=== PATIENT | female | born 1995 | race Caucasian/White ===

== ENCOUNTER 2017-02-18 21:27 | Emergency (ER) | payer OTHER ==
[2017-02-18 21:33] VITALS: BP 109/77; PULSE 84; TEMP 98.2; BMI 17.5
--- NOTE | 2017-02-18 22:17 | PDOC ---
History of Present Illness - General Chief Complaint: Bite Stated Complaint: BITE Time Seen by Provider: 02/18/17 21:56 - History of Present Illness Initial Comments: 02/18/17 22:12 CHIEF COMPLAINT: dog bite HISTORY OF PRESENT ILLNESS: 21 yo F with hx of asthma presents to fast track s/ p dog bite earlier today. Patient reports she was walking to her job when a dog that was being walked by his sash finisher jumped up and bit her on the left thigh. Patient reports that she was wearing pants and the dog bit over the cloth, she denies any puncture, open wound, or bleeding caused by the bite. She states that she "just wanted to get checked out since I have never been bit before." No recent travel or sick contacts. PAST MEDICAL HISTORY: Denies past medical history FAMILY HISTORY: Denies SOCIAL HISTORY: Denies tobacco, alcohol, illicit drug use. SURGICAL HISTORY: Denies ALLERGIES: No known drug allergies REVIEW OF SYSTEMS General/Constitutional: Denies fever or chills. Denies weakness, weight change. HEENT: Denies change in vision. Denies ear pain or discharge. Denies sore throat. Cardiovascular: Denies chest pain or shortness of breath. Respiratory: Denies cough, wheezing, or hemoptysis. Gastrointestinal: Denies nausea, vomiting, diarrhea or constipation. Denies rectal bleeding. Genitourinary: Denies dysuria, frequency, or change in urination. Musculoskeletal: Denies joint or muscle swelling or pain. Denies neck or back pain. Skin and breasts: Pain and bruising s/o dog bite. PHYSICAL EXAM General Appearance: Well-appearing, appropriately dressed. No apparent distress. HEENT: EOMI, PERRLA, normal ENT inspection, normal voice, TMs normal, pharynx normal. No conjunctival pallor. No photophobia, scleral icterus. Respiratory/Chest: Lungs CTAB. Cardiovascular: RRR. S1, S2. Lymphatic: No adenopathy, tenderness. Musculoskeletal/Extremities: See integumentary. Normal inspection. FROM of all extremities. Integumentary: Tenderness and ecchymosis to distal left thigh, no open wounds, puncture, lesions, bleeding. Appropriate color, dry, warm. No cyanosis, erythema, jaundice or rash. Neurologic: abap developer II-XII intact. Fully oriented, alert. Appropriate mood/affect. Motor strength 5/5. No appreciable EOM palsy, facial droop or sensory deficit. Past History - Past Medical History Allergies/Adverse Reactions: Allergies Allergy/AdvReac Type Severity Reaction Status Date / Time jessica Allergy Verified 02/18/17 21:29 Home Medications: Ambulatory Orders Albuterol Sulfate Inhaler - [Ventolin Hfa Inhaler -] 1 - 2 inh PO QID 02/18/17 Ibuprofen 800 mg PO TID PRN #30 tablet 02/18/17 Asthma: Yes - Psycho/Social/Smoking Cessation Hx Suicidal Ideation: No Smoking History: Never smoked Have you smoked in the past 12 months: No Number of Cigarettes Smoked Daily: 0 Hx Alcohol Use: No Drug/Substance Use Hx: No *Physical Exam - Vital Signs Last Vital Signs Temp Pulse Resp BP Pulse Ox 98.2 F 84 16 109/77 100 02/18/17 21:30 02/18/17 21:30 02/18/17 21:30 02/18/17 21:30 02/18/17 21:30 Medical Decision Making - Medical Decision Making 02/18/17 22:16 21 yo F with hx of asthma presents to fast track s/p dog bite earlier today. Patient reports last tetanus shot was 2007. Patient does not meet criteria for RPEP as skin is intact. Motrin 800 mg TID PRN pain. Advised patient to f/u with PMD within the next 3-5 days for further evaluation. Advised patient of signs and symptoms for return to ER; patient verbalized understanding and agrees to plan. *DC/Admit/Observation/Transfer Diagnosis at time of Disposition: Dog bite Qualifiers: Encounter type: initial encounter Qualified Code(s): W54.0XXA - Bitten by dog, initial encounter - Discharge Dispostion Disposition: HOME Condition at time of disposition: Stable Admit: No - Prescriptions Prescriptions: Ibuprofen 800 mg PO TID PRN #30 tablet PRN Reason: Pain - Patient Instructions Printed Discharge Instructions: DI for Animal Bites, DI for Dog Bite Additional Instructions: Please take medication as prescribed for pain. Follow up with your primary care doctor next week for reevaluation of the bite. If you develop any swelling , redness, warmth, or increased pain to the site of the bite, or you develop any fever, nausea, vomiting, diarrhea, or any new or worsening symptoms, please return to the ER.
== END 2017-02-18 22:34 | disposition home or self-care (01) ==
LOC: JERFT 21:27
DX: S70.372A Other superficial bite of left thigh, initial encounter (principal); W54.0XXA Bitten by dog, initial encounter; Y93.01 Activity, walking, marching and hiking; Y92.480 Sidewalk as the place of occurrence of the external cause; Y99.8 Other external cause status
CPT/HCPCS: 99281-25

== ENCOUNTER 2017-03-18 20:56 | Emergency (ER) | payer OTHER ==
[2017-03-18 21:26] VITALS: BMI 16.6
--- NOTE | 2017-03-18 22:50 | PDOC ---
History of Present Illness - General Chief Complaint: Nausea/Vomiting Stated Complaint: VAGINAL BLEED Time Seen by Provider: 03/18/17 21:17 - History of Present Illness Initial Comments: 03/18/17 22:47 CHIEF COMPLAINT: vag bldg, abd cramping HISTORY OF PRESENT ILLNESS: 21 yo F with hx of asthma and fibromyalgia presents to ED with abd cramping x 1.5 week and vag bldg since today. Patient reports she went to see her doctor who did a preg test but siad it was neg but she should get it rechecked becuase it was probly early preg. patient states usually period is heavy from beginning but today was diff, was watery blood. nausa all last week, vomiting 3 x yesterday and 4x today. No recent travel or sick contacts. PAST MEDICAL HISTORY: Denies past medical history FAMILY HISTORY: Denies SOCIAL HISTORY: Denies tobacco, alcohol, illicit drug use. SURGICAL HISTORY: Denies ALLERGIES: raspberry REVIEW OF SYSTEMS General/Constitutional: Denies fever or chills. Denies weakness, weight change. HEENT: Denies change in vision. Denies ear pain or discharge. Denies sore throat. Cardiovascular: Denies chest pain or shortness of breath. Respiratory: Denies cough, wheezing, or hemoptysis. Gastrointestinal: Denies nausea, vomiting, diarrhea or constipation. Denies rectal bleeding. Genitourinary: Denies dysuria, frequency, or change in urination. Musculoskeletal: Denies joint or muscle swelling or pain. Denies neck or back pain. Skin and breasts: Denies rash or easy bruising. Neurologic: Denies headache, vertigo, loss of consciousness, or loss of sensation. Psychiatric: Denies depression or anxiety. Endocrine: Denies increased thirst. Denies abnormal weight change. Hematologic/Lymphatic: Denies anemia, easy bleeding, or history of blood clots. Allergic/Immunologic: Denies hives or skin allergy. Denies latex allergy. PHYSICAL EXAM General Appearance: Well-appearing, appropriately dressed. No apparent distress , no intoxication. HEENT: EOMI, PERRLA, normal ENT inspection, normal voice, TMs normal, pharynx normal. No conjunctival pallor. No photophobia, scleral icterus. Neck: Supple. Trachea midline. No tenderness, rigidity, carotid bruit, stridor , lymphadenopathy, or thyromegaly. Respiratory/Chest: Lungs CTAB. No shortness of breath, chest tenderness, respiratory distress, accessory muscle use. No crackles, rales, rhonchi, stridor , wheezing, dullness Cardiovascular: RRR. S1, S2. No JVD, murmur, bradycardia, tachycardia. Vascular Pulses: Dorsalis-Pedis (R): 2+, Dorsalis-Pedis (L): 2+ Gastrointestinal/Abdominal: Normal bowel sounds. Abdomen soft, non-distended. No tenderness or rebound tenderness. No organomegaly, pulsatile mass, guarding , hernia, hepatomegaly, splenomegaly. Lymphatic: No adenopathy, tenderness. Musculoskeletal/Extremities: Normal inspection. FROM of all extremities, normal capillary refill. Pelvis Stable. No CVA tenderness. No tenderness to extremities, pedal edema, swelling, erythema or deformity. Integumentary: Appropriate color, dry, warm. No cyanosis, erythema, jaundice or rash Neurologic: cook restaurant II-XII intact. Fully oriented, alert. Appropriate mood/affect. Motor strength 5/5. No appreciable EOM palsy, facial droop or sensory deficit. 03/19/17 00:17 03/19/17 06:30 Past History - Past Medical History Allergies/Adverse Reactions: Allergies Allergy/AdvReac Type Severity Reaction Status Date / Time raspberry Allergy Verified 03/18/17 21:08 Home Medications: Ambulatory Orders Albuterol Sulfate Inhaler - [Ventolin Hfa Inhaler -] 1 - 2 inh PO QID 02/18/17 Ondansetron [Zofran *Odt*] 8 mg SL TID PRN #15 od.tablet 03/19/17 Asthma: Yes - Psycho/Social/Smoking Cessation Hx Suicidal Ideation: No Smoking History: Never smoked Have you smoked in the past 12 months: No Number of Cigarettes Smoked Daily: 0 Hx Alcohol Use: No Drug/Substance Use Hx: No *Physical Exam - Vital Signs Last Vital Signs Temp Pulse Resp BP Pulse Ox 98.4 F 77 18 96/65 99 03/18/17 21:09 03/18/17 21:09 03/18/17 21:09 03/18/17 21:09 03/18/17 21:09 ED Treatment Course - LABORATORY CBC & Chemistry Diagram: 03/18/17 23:00 03/18/17 23:00 Medical Decision Making - Medical Decision Making 03/19/17 00:17 21 yo F with hx of asthma and fibromyalgia presents to ED with abd cramping x 1.5 week and vag bldg since today. Patient tearful and complaining of severe diffuse abdominal cramping, unable to tolerate pelvic exam. -CBC, CMP, PT/INR, T&S, beta hcg -Pelvic u/s r/o torsion, cyst rupture *DC/Admit/Observation/Transfer Diagnosis at time of Disposition: Vaginal bleeding - Discharge Dispostion Admit: No - Prescriptions Prescriptions: Ondansetron [Zofran *Odt*] 8 mg SL TID PRN #15 od.tablet PRN Reason: Nausea And/Or Vomiting - Referrals Referrals: Luba Han MD [Primary Care Provider] - Brittney Currie MD [Staff Physician] - - Patient Instructions Printed Discharge Instructions: DI for Vaginal Bleeding Additional Instructions: Take medication as prescribed for your nausea/vomiting. Please follow up with your primary care doctor and OBGYN for further evaluation of your vaginal bleeding and abdominal discomfort . If you experience severe vaginal bleeding ( more than one soaked pad an hour), palpitations, dizziness or lightheadedness, or any new or worsening symptoms, please return to the ER. - Post Discharge Activity Work/School Note: Back to Work
[2017-03-18 23:10] LABS: BASOPHIL 0.6 % (0-2.0)
[2017-03-18 23:18] LABS: EOSINOPHIL 3.2 % (0-4.5); MCH 27.4 pg (25.7-33.7); MCHC 32.7 g/dl (32.0-36.0); MEAN CELL VOLUME 83.9 fl (80-96); MEAN PLT VOLUME 9.5 fl (7.5-11.1); PLATELET COUNT 320 K/MM3 (134-434); WHITE BLOOD COUNT 7.3 K/mm3 (4.0-10.0)
[2017-03-18 23:42] LABS: ALBUMIN 4.2 g/dl (3.4-5.0); ALK PHOS 68 U/L (45-117); ANION GAP 11 (8-16); BILIRUBIN,TOTAL 1.3 mg/dL (0.2-1.0); CALCIUM 9.6 mg/dL (8.5-10.1); CO2 21 mmol/L (21-32); CREATININE 0.8 mg/dL (0.55-1.02); GLUCOSE,RANDOM 90 mg/dL (74-106); SGOT/AST 19 U/L (15-37); SGPT/ALT 28 U/L (12-78); TOT PROT 7.4 g/dl (6.4-8.2)
[2017-03-19 00:50] LABS: URINE APPEARANCE CLEAR; URINE BILIRUBIN NEGATIVE (NEGATIVE); URINE COLOR YELLOW; URINE GLUCOSE (UA) NEGATIVE (NEGATIVE); URINE KETONE 1+ (NEGATIVE); URINE NITRITE NEGATIVE (NEGATIVE); URINE UROBILINOGEN NEGATIVE E.U./dl (0.2-1.0)
[2017-03-19 01:20] LABS: URINE BLOOD 3+ (NEGATIVE); URINE LEUK ESTERASE TRACE (NEGATIVE); URINE PROTEIN 1+ (NEGATIVE)
[2017-03-19 01:24] LABS: URINE MUCUS RARE; URINE RBC 767 /hpf (0-3); URINE WBC 27 /hpf (3-5)
[2017-03-19 05:04] VITALS: BP 102/62; PULSE 65; TEMP 98.3
== END 2017-03-19 01:59 | disposition home or self-care (01) ==
LOC: JER 20:56
DX: N93.8 Other specified abnormal uterine and vaginal bleeding (principal); J45.909 Unspecified asthma, uncomplicated; M79.7 Fibromyalgia
CPT/HCPCS: 36415; 76830-TC; 80053; 81003; 81015; 84702; 85025; 86850; 86900; 86901; 87086; 99282-25

== ENCOUNTER 2017-06-09 13:45 | Emergency (ER) | payer OTHER ==
[2017-06-09 13:48] VITALS: BP 107/72; PULSE 106; TEMP 98.7; BMI 18.0
[2017-06-09] MEDS ORDERED: ONDANSETRON *ODT* 4 MG TABLET SL ONE (16:03)
[2017-06-09] MEDS ORDERED: ONDANSETRON *ODT* 4 MG TABLET ONE (16:09)
[2017-06-09 16:43] LABS: URINE APPEARANCE CLEAR; URINE BILIRUBIN NEGATIVE (NEGATIVE); URINE BLOOD 3+ (NEGATIVE); URINE COLOR YELLOW; URINE GLUCOSE (UA) NEGATIVE (NEGATIVE); URINE KETONE 1+ (NEGATIVE); URINE NITRITE NEGATIVE (NEGATIVE); URINE UROBILINOGEN NEGATIVE mg/dL (0.2-1.0)
[2017-06-09 17:05] LABS: URINE PROTEIN 1+ (NEGATIVE)
[2017-06-09 17:20] LABS: URINE BACTERIA RARE /hpf (NONE SEEN); URINE MUCUS FEW; URINE RBC 4 /hpf (0-3); URINE WBC 2 /hpf (3-5)
--- NOTE | 2017-06-09 17:50 | PDOC ---
History of Present Illness - General Chief Complaint: Pain Stated Complaint: NAUSEA/VOMITING Time Seen by Provider: 06/09/17 15:51 History Source: Patient Exam Limitations: No Limitations - History of Present Illness Travel History: No Initial Comments: 06/09/17 17:51 21-year-old female presents to the emergency room with complaints of nausea and vomiting with upper abdominal cramping since last night. Patient denies fever, chills but states unable to tolerate by mouth secondary to the above. Patient states similar symptoms with her spouse and her niece that lives in the same household earlier this week but resolved without medical intervention. Patient states feels generally weak and states attempted to take Pepto-Bismol with no relief and decided come to the ER. Timing/Duration: reports: intermittent Quality: reports: moderate, cramping Abdominal Pain Onset Location: reports: epigastric Pain Radiation: reports: no radiation Activities at Onset: reports: none Aggravating Factors: improves with: None Alleviating Factors: improves with: None Past History - Past Medical History Allergies/Adverse Reactions: Allergies Allergy/AdvReac Type Severity Reaction Status Date / Time brittonerry Allergy Verified 06/09/17 13:48 Home Medications: Ambulatory Orders Ondansetron HCl [Zofran] 4 mg PO TID PRN #12 tablet 06/09/17 Asthma: Yes Other medical history: denies - Psycho/Social/Smoking Cessation Hx Anxiety: No Suicidal Ideation: No Smoking History: Never smoked Have you smoked in the past 12 months: No Number of Cigarettes Smoked Daily: 0 Information on smoking cessation initiated: No Hx Alcohol Use: No Drug/Substance Use Hx: No Substance Use Type: None Patient Lives Alone: No Lives with/in: spouse/SO Review of Systems - Review of Systems Able to Perform ROS?: Yes Constitutional: Yes: Weakness HEENTM: No: Symptoms Reported Respiratory: No: Symptoms reported Cardiac (ROS): No: Symptoms Reported ABD/GI: Yes: Nausea, Poor Appetite, Poor Fluid Intake, Vomiting, Abdominal cramping : No: Symptoms Reported Musculoskeletal: No: Symptoms Reported Integumentary: No: Symptoms Reported Neurological: No: Symptoms reported Endocrine: No: Symptoms Reported *Physical Exam - Vital Signs Last Vital Signs Temp Pulse Resp BP Pulse Ox 98.7 F 106 H 18 107/72 98 06/09/17 13:47 06/09/17 13:47 06/09/17 13:47 06/09/17 13:47 06/09/17 13:47 - Physical Exam General Appearance: Yes: Nourished, Appropriately Dressed. No: Apparent Distress Neck: positive: Supple Respiratory/Chest: positive: Lungs Clear, Normal Breath Sounds. negative: Respiratory Distress, Accessory Muscle Use Cardiovascular: positive: Regular Rhythm, Regular Rate (92 on pulse oximetry). negative: Murmur Gastrointestinal/Abdominal: positive: Soft, Tenderness (mild epigastric. NO ru/ lq tenderness) Musculoskeletal: negative: CVA Tenderness Extremity: positive: Normal Capillary Refill Integumentary: positive: Normal Color, Warm, Moist Neurologic: positive: Normal Mood/Affect, Motor Strength 5/5 (ambulatory) ED Treatment Course - ADDITIONAL ORDERS Additional order review: Laboratory Results 06/09/17 16:19 Urine Color Yellow Urine Appearance Clear Urine pH 5.0 Urine Protein 1+ H Urine Glucose (UA) Negative Urine Ketones 1+ H Urine Blood 3+ H Urine Nitrite Negative Urine Bilirubin Negative Urine Urobilinogen Negative Urine HCG, Qual Negative - Medications Given in the ED: ED Medications Discontinued Medications Generic Name Dose Route Start Last Admin Trade Name Freq PRN Reason Stop Dose Admin Ondansetron HCl 4 mg 06/09/17 16:03 06/09/17 16:10 Zofran Odt - SL 06/09/17 16:04 4 mg ONCE ONE Administration Medical Decision Making - Medical Decision Making 06/09/17 17:04 Plaints of nausea and vomiting since yesterday associated with upper abdominal cramping secondary to vomiting. Patient exam had mild epigastric tenderness. Patient with 2 other sick contacts at home who are currently improving on day 3 and 5. Patient with likely gastroenteritis or viral syndrome. Patient ordered for urinalysis urine and sublingual Zofran. If the patient is able to tolerate by mouth, I will discharge her with same. if not patient will require labs and IV fluids along with IV antiemetics. 06/09/17 18:13 Laboratory Tests 06/09/17 16:19 Urine Protein 1+ H Urine Ketones 1+ H Urine Blood 3+ H Urine Nitrite Negative Urine Urobilinogen Negative Urine RBC 4 Urine WBC 2 Urine HCG, Qual Negative Patient able to tolerate saltines and Gatorade without difficulty. Will discharge patient home with Zofran. *DC/Admit/Observation/Transfer Diagnosis at time of Disposition: Nausea & vomiting - Discharge Dispostion Disposition: HOME Condition at time of disposition: Improved - Prescriptions Prescriptions: Ondansetron HCl [Zofran] 4 mg PO TID PRN #12 tablet PRN Reason: Nausea And/Or Vomiting - Referrals Referrals: STAFF,NOT ON [Primary Care Provider] - - Patient Instructions Printed Discharge Instructions: DI for Nausea -- Adult Additional Instructions: Please take medication as needed for nausea. Please follow bland soft diet for the next 72 hours and advance as tolerated. If symptoms return or worsen, go to the nearest emergency department - Post Discharge Activity Work/School Note: Back to Work
== END 2017-06-09 18:11 | disposition home or self-care (01) ==
LOC: JER 13:45
DX: R11.2 Nausea with vomiting, unspecified (principal)
CPT/HCPCS: 81003; 81015; 84703; 99282-25

== ENCOUNTER 2018-07-06 08:49 | Emergency (ER) | payer SELFPAY ==
[2018-07-06 09:04] VITALS: BMI 18.8
[2018-07-06] MEDS ORDERED: RANITIDINE HCL 150 MG TABLET (FP) PO ONE (09:24)
[2018-07-06] MEDS ORDERED: MAG HYDROX/AL HYDROX/SIMETH 30 ML UNIT-DOSE CUP PO ONE (09:25)
[2018-07-06] MEDS ORDERED: SUCRALFATE 1 GM TABLET (FP) PO ONE (09:25)
--- NOTE | 2018-07-06 09:29 | PDOC ---
History of Present Illness - General History Source: Patient - History of Present Illness Timing/Duration: reports: other Quality: reports: moderate <AmericanJack - Last Filed: 07/06/18 10:35> <Kelvin Monet - Last Filed: 07/06/18 15:50> - General Chief Complaint: Pain Stated Complaint: PAIN SIDE/BACK Time Seen by Provider: 07/06/18 09:21 Past History - Past Medical History Asthma: Yes COPD: No - Immunization History Immunization Up to Date: Yes - Suicide/Smoking/Psychosocial Hx Smoking History: Never smoked Have you smoked in the past 12 months: No Number of Cigarettes Smoked Daily: 0 Hx Alcohol Use: No Drug/Substance Use Hx: No Substance Use Type: None <Jack Franco - Last Filed: 07/06/18 10:35> <Kelvin Monet - Last Filed: 07/06/18 15:50> - Past Medical History Allergies/Adverse Reactions: Allergies Allergy/AdvReac Type Severity Reaction Status Date / Time raspberry Allergy Verified 07/06/18 09:02 Home Medications: Ambulatory Orders Acetaminophen [Tylenol -] 2 tab PO Q6H #30 tablet 07/06/18 Famotidine [Pepcid] 20 mg PO DAILY #14 tablet 07/06/18 Review of Systems - Review of Systems Constitutional: No: Chills, Fever Respiratory: No: Shortness of Breath Cardiac (ROS): No: Chest Pain, Palpitations ABD/GI: No: Diarrhea, Nausea, Vomiting : No: Dysuria, Hematuria <Jack Franco - Last Filed: 07/06/18 10:35> *Physical Exam - Vital Signs Last Vital Signs Temp Pulse Resp BP Pulse Ox 98.0 F 98 H 18 144/65 99 07/06/18 09:02 07/06/18 09:02 07/06/18 09:02 07/06/18 09:02 07/06/18 09:02 - Physical Exam General Appearance: Yes: Appropriately Dressed. No: Apparent Distress HEENT: positive: Normal Voice Neck: positive: Supple Respiratory/Chest: positive: Lungs Clear, Normal Breath Sounds. negative: Respiratory Distress Cardiovascular: positive: Regular Rate, S1, S2 Gastrointestinal/Abdominal: positive: Normal Bowel Sounds, Tender (to epigastrium and minimally to RUQ, neg murpheys, no ttp over mcburneys). negative: Distended, Guarding, Rebound Musculoskeletal: negative: CVA Tenderness Integumentary: positive: Dry, Warm Neurologic: positive: Fully Oriented, Alert, Normal Mood/Affect <Jack Franco - Last Filed: 07/06/18 10:35> - Vital Signs Last Vital Signs Temp Pulse Resp BP Pulse Ox 97.8 F 90 20 110/73 99 07/06/18 10:46 07/06/18 10:46 07/06/18 10:46 07/06/18 10:46 07/06/18 10:46 <Kelvin Monet - Last Filed: 07/06/18 15:50> ED Treatment Course - LABORATORY CBC & Chemistry Diagram: 07/06/18 09:55 07/06/18 09:55 <Dipti FrancoJolanta - Last Filed: 07/06/18 10:35> - LABORATORY CBC & Chemistry Diagram: 07/06/18 09:55 07/06/18 09:55 - ADDITIONAL ORDERS Additional order review: Laboratory Results 07/06/18 07/06/18 07/06/18 10:00 09:55 09:55 Sodium 140 Potassium 4.1 Chloride 111 H Carbon Dioxide 24 Anion Gap 5 L BUN 14 Creatinine 0.7 Creat Clearance w eGFR > 60 Random Glucose 98 Calcium 9.5 Total Bilirubin 0.7 AST 14 L ALT 24 Alkaline Phosphatase 76 Total Protein 7.8 Albumin 3.8 Lipase 142 Serum , Qual Negative Urine Color Ltyellow Urine Appearance Clear Urine pH 7.0 D Ur Specific [place] 1.012 Urine Protein Negative Urine Glucose (UA) Negative Urine Ketones Negative Urine Blood 1+ H Urine Nitrite Negative Urine Bilirubin Negative Urine Urobilinogen Negative Ur Leukocyte Esterase 2+ H D Urine WBC (Auto) 67 Urine RBC (Auto) 3 07/06/18 09:55 RBC 5.30 H MCV 82.1 MCHC 33.0 RDW 13.0 MPV 8.0 D Neutrophils % 48.2 Lymphocytes % 40.1 H Monocytes % 5.8 Eosinophils % 4.7 H Basophils % 1.2 - Medications Given in the ED: ED Medications Discontinued Medications Generic Name Dose Route Start Last Admin Trade Name Freq PRN Reason Stop Dose Admin Al Hydroxide/Mg Hydroxide 30 ml 07/06/18 09:25 07/06/18 09:38 Mylanta Oral Suspension - PO 07/06/18 09:26 30 ml ONCE ONE Administration Ranitidine HCl 150 mg 07/06/18 09:24 07/06/18 09:37 Zantac - PO 07/06/18 09:25 150 mg ONCE ONE Administration Sucralfate 1 gm 07/06/18 09:25 07/06/18 09:37 Carafate - PO 07/06/18 09:26 1 gm ONCE ONE Administration <Kelvin Monet - Last Filed: 07/06/18 15:50> Medical Decision Making - Medical Decision Making 07/06/18 09:25 23-year-old female, history of asthma, fibromyalgia, here with upper abdominal pain. Patient states for the past 3 days has had intermittent upper abdominal pain radiating to her right upper back, unable to describe, 5 out of 10 with no exacerbating/alleviating factors. No nausea, vomiting, change in bowel movements , dysuria, fever or chills. No history of similar pain. Does not feel like her fibromyalgia. No excessive alcohol use. Does report taking Advil frequently for her fibromyalgia See exam Possible gastritis, unlikely pancreatitis/pavan/renal colic or uti Well remi w/ ttp to epigastrium -GI cocktail -labs r/o other source -anticipate discharge 07/06/18 10:35 07/06/18 10:35 Pt reports improvement w/ meds. Labs unremarkable. Will dc w/ rx and pmd f/u as needed <Jack Franco - Last Filed: 07/06/18 10:35> - Medical Decision Making I reviewed the case of the mid-level practitioner and was available for consultation while in the emergency department <Kelvin Monet - Last Filed: 07/06/18 15:50> *DC/Admit/Observation/Transfer <Jack Franco - Last Filed: 07/06/18 10:35> <Kelvin Monet - Last Filed: 07/06/18 15:50> Diagnosis at time of Disposition: Epigastric abdominal pain - Discharge Dispostion Disposition: HOME Condition at time of disposition: Improved - Prescriptions Prescriptions: Acetaminophen [Tylenol -] 2 tab PO Q6H #30 tablet Famotidine [Pepcid] 20 mg PO DAILY #14 tablet - Patient Instructions Additional Instructions: Your pain could be caused by gastritis or muscular cause Take medications as prescribed If you do need to continue taking advil, make sure you take it on a full stomach If pain persists, please follow up with your PMD - Post Discharge Activity Forms/Work/School Notes: Back to Work
[2018-07-06] MEDS ORDERED: SUCRALFATE 1 GM TABLET (FP) ONE (09:33)
[2018-07-06] MEDS ORDERED: RANITIDINE HCL 150 MG TABLET (FP) ONE (09:33)
[2018-07-06] MEDS ORDERED: MAG HYDROX/AL HYDROX/SIMETH 30 ML UNIT-DOSE CUP ONE (09:34)
[2018-07-06 10:00] LABS: BASO % 1.2 % (0-2.0); EOS % 4.7 % (0-4.5); HEMATOCRIT 43.5 % (32.4-45.2); HEMOGLOBIN 14.3 GM/dL (10.7-15.3); LYMPH % 40.1 % (8-40); MCH 27.1 pg (25.7-33.7); MEAN CELL VOLUME 82.1 fl (80-96); MONO % 5.8 % (3.8-10.2); NEUT % 48.2 % (42.8-82.8); PLATELET COUNT 400 K/MM3 (134-434); WHITE BLOOD COUNT 5.6 K/mm3 (4.0-10.0)
[2018-07-06 10:04] LABS: URINE APPEARANCE CLEAR; URINE BILIRUBIN NEGATIVE (<2.0 mg/dL); URINE COLOR LTYELLOW; URINE GLUCOSE (UA) NEGATIVE (NEGATIVE); URINE KETONE NEGATIVE (NEGATIVE); URINE LEUK ESTERASE 2+ (NEGATIVE); URINE NITRITE NEGATIVE (NEGATIVE); URINE PROTEIN NEGATIVE (NEGATIVE); URINE UROBILINOGEN NEGATIVE mg/dL (0.2-1.0)
[2018-07-06 10:26] LABS: ALBUMIN 3.8 g/dl (3.4-5.0); ALK PHOS 76 U/L (45-117); ANION GAP 5 MMOL/L (8-16); BILIRUBIN,TOTAL 0.7 mg/dL (0.2-1); BLOOD UREA NITROGEN 14 mg/dL (7-18); CALCIUM 9.5 mg/dL (8.5-10.1); CHLORIDE 111 mmol/L (98-107); CO2 24 mmol/L (21-32); CREATININE 0.7 mg/dL (0.55-1.3); GLUCOSE,RANDOM 98 mg/dL (74-106); LIPASE 142 U/L (73-393); POTASSIUM 4.1 mmol/L (3.5-5.1); SGOT/AST 14 U/L (15-37); SGPT/ALT 24 U/L (13-61); SODIUM 140 mmol/L (136-145); TOT PROT 7.8 g/dl (6.4-8.2)
[2018-07-06 10:47] VITALS: BP 110/73; PULSE 90; TEMP 97.8
== END 2018-07-06 10:47 | disposition home or self-care (01) ==
LOC: JER 08:49
DX: R10.13 Epigastric pain (principal)
CPT/HCPCS: 36415; 80053; 81003; 81015; 83690; 84703; 85025; 99282-25

== ENCOUNTER 2018-07-06 18:29 | Emergency (ER) | payer SELFPAY ==
[2018-07-06 18:47] VITALS: TEMP 97.9; BMI 18.8
--- NOTE | 2018-07-06 18:47 | PDOC ---
Rapid Medical Evaluation Chief Complaint: Pain Time Seen by Provider: 07/06/18 18:43 Medical Evaluation: Allergies Allergy/AdvReac Type Severity Reaction Status Date / Time jessica Allergy Verified 07/06/18 18:43 07/06/18 18:46 The patient presents with a chief complaint of: abdominal pain I have performed a brief in-person evaluation of this patient. Pertinent physical exam findings: vss, [] I have ordered the following: provider to determine, pt in er earlier, labs done then The patient will proceed to the ED for further evaluation. Discharge Disposition - Referrals Referrals: Elizabet Mackenzie MD [Primary Care Provider] - - Patient Instructions - Post Discharge Activity
[2018-07-06] MEDS ORDERED: SODIUM CHLORIDE 1,000 ML IV STA (22:13)
[2018-07-06] MEDS ORDERED: ONDANSETRON 4 MG/2 ML VIAL IVPUSH ONE (22:15)
[2018-07-06] MEDS ORDERED: ONDANSETRON 4 MG/2 ML VIAL ONE (22:28)
[2018-07-06 22:54] LABS: BASO % 0.4 % (0-2.0); EOS % 1.2 % (0-4.5); HEMATOCRIT 42.9 % (32.4-45.2); HEMOGLOBIN 14.2 GM/dL (10.7-15.3); LYMPH % 23.1 % (8-40); MCH 27.1 pg (25.7-33.7); MEAN CELL VOLUME 82.2 fl (80-96); MEAN PLT VOLUME 8.3 fl (7.5-11.1); MONO % 5.3 % (3.8-10.2); PLATELET COUNT 426 K/MM3 (134-434); RBC 5.22 M/mm3 (3.60-5.2); RDW 12.5 % (11.6-15.6)
[2018-07-06 23:00] LABS: URINE APPEARANCE SLCLOUDY; URINE BILIRUBIN NEGATIVE (<2.0 mg/dL); URINE COLOR LTYELLOW; URINE GLUCOSE (UA) NEGATIVE (NEGATIVE); URINE KETONE 1+ (NEGATIVE); URINE LEUK ESTERASE 3+ (NEGATIVE); URINE NITRITE NEGATIVE (NEGATIVE); URINE PROTEIN NEGATIVE (NEGATIVE); URINE UROBILINOGEN NEGATIVE mg/dL (0.2-1.0)
[2018-07-06 23:18] LABS: ALBUMIN 3.8 g/dl (3.4-5.0); ALK PHOS 75 U/L (45-117); ANION GAP 9 MMOL/L (8-16); BILIRUBIN,TOTAL 0.6 mg/dL (0.2-1); BLOOD UREA NITROGEN 14 mg/dL (7-18); CALCIUM 9.4 mg/dL (8.5-10.1); CHLORIDE 108 mmol/L (98-107); CO2 22 mmol/L (21-32); CREATININE 0.9 mg/dL (0.55-1.3); GLUCOSE,RANDOM 92 mg/dL (74-106); LIPASE 111 U/L (73-393); SGOT/AST 19 U/L (15-37); SGPT/ALT 23 U/L (13-61); SODIUM 139 mmol/L (136-145); TOT PROT 7.9 g/dl (6.4-8.2)
[2018-07-06 23:24] LABS: EPI CELLS MODERATE /HPF (FEW); URINE BACTERIA RARE /hpf (NONE SEEN)
[2018-07-06] MEDS ORDERED: CEFTRIAXONE 1,000 MG in DEXTROSE 5%-WATER - 50 ML IVPB ONE (23:38)
--- NOTE | 2018-07-06 23:38 | PDOC ---
History of Present Illness - General Chief Complaint: Pain Stated Complaint: ABD PAIN Time Seen by Provider: 07/06/18 18:43 History Source: Patient - History of Present Illness Initial Comments: 07/06/18 23:40 23 year old female with nausea, vomtiing and generalized abdominal cramps worse in ruq pain raditing to b/l flank pain. 07/06/18 23:48 Past History - Past Medical History Allergies/Adverse Reactions: Allergies Allergy/AdvReac Type Severity Reaction Status Date / Time raspberry Allergy Verified 07/06/18 18:43 Home Medications: Ambulatory Orders Acetaminophen [Tylenol -] 2 tab PO Q6H #30 tablet 07/06/18 Cefuroxime Axetil [Cefuroxime] 500 mg PO BID #20 tablet 07/06/18 Famotidine [Pepcid] 20 mg PO DAILY #14 tablet 07/06/18 Asthma: Yes COPD: No - Immunization History Immunization Up to Date: Yes - Suicide/Smoking/Psychosocial Hx Smoking History: Never smoked Have you smoked in the past 12 months: No Number of Cigarettes Smoked Daily: 0 Hx Alcohol Use: No Drug/Substance Use Hx: No Substance Use Type: None *Physical Exam - Vital Signs Last Vital Signs Temp Pulse Resp BP Pulse Ox 97.9 F 109 H 18 117/78 100 07/06/18 18:45 07/06/18 18:45 07/06/18 18:45 07/06/18 18:45 07/06/18 18:45 ED Treatment Course - LABORATORY CBC & Chemistry Diagram: 07/06/18 22:16 07/06/18 22:16 - ADDITIONAL ORDERS Additional order review: Laboratory Results 07/06/18 07/06/18 07/06/18 22:54 22:16 22:16 Sodium 139 Potassium 4.0 Chloride 108 H Carbon Dioxide 22 Anion Gap 9 BUN 14 Creatinine 0.9 Creat Clearance w eGFR > 60 Random Glucose 92 Calcium 9.4 Total Bilirubin 0.6 AST 19 ALT 23 Alkaline Phosphatase 75 Total Protein 7.9 Albumin 3.8 Lipase 111 Serum , Qual Negative Urine Color Ltyellow Urine Appearance Slcloudy Urine pH 8.0 Ur Specific [place] 1.012 Urine Protein Negative Urine Glucose (UA) Negative Urine Ketones 1+ H Urine Blood 1+ H Urine Nitrite Negative Urine Bilirubin Negative Urine Urobilinogen Negative Ur Leukocyte Esterase 3+ H Urine WBC (Auto) 137 Urine RBC (Auto) 4 Ur Epithelial Cells Moderate Urine Bacteria Rare 07/06/18 22:16 RBC 5.22 H MCV 82.2 MCHC 33.0 RDW 12.5 MPV 8.3 Neutrophils % 70.0 D Lymphocytes % 23.1 D Monocytes % 5.3 Eosinophils % 1.2 Basophils % 0.4 - RADIOLOGY Radiology Studies Ordered: Category Date Time Status ABDOMEN US -LIMITED [US] Stat Ultrasound 07/06/18 22:20 Taken KIDNEY / RENAL US [US] Stat Ultrasound 07/06/18 22:20 Taken - Medications Given in the ED: ED Medications Discontinued Medications Generic Name Dose Route Start Last Admin Trade Name Freq PRN Reason Stop Dose Admin Sodium Chloride 1,000 mls @ 1,000 mls/hr 07/06/18 22:13 07/06/18 22:54 Normal Saline - IV 07/06/18 23:12 1,000 mls/hr ASDIR STA Administration Ondansetron HCl 4 mg 07/06/18 22:15 07/06/18 22:54 Zofran Injection IVPUSH 07/06/18 22:16 4 mg ONCE ONE Administration *DC/Admit/Observation/Transfer Diagnosis at time of Disposition: Pyelonephritis - Prescriptions Prescriptions: Cefuroxime Axetil [Cefuroxime] 500 mg PO BID #20 tablet - Referrals Referrals: Elizabet Mackenzie MD [Primary Care Provider] - Call tomorrow - Patient Instructions Printed Discharge Instructions: Kidney Infection Additional Instructions: drink plenty of fluids. take cefuroxime as prescribed follow up with your doctor as soon as possible. - Post Discharge Activity Forms/Work/School Notes: Back to Work
[2018-07-07] MEDS ORDERED: CEFTRIAXONE 1 GM/50 ML BAG ONE (00:17)
[2018-07-07 00:58] VITALS: BP 122/72; PULSE 72
== END 2018-07-07 00:58 | disposition home or self-care (01) ==
LOC: JER 18:29
PROC: 3E0337Z Introduction of Electrolytic and Water Balance Substance into Peripheral Vein, Percutaneous Approach (ICD-10-PCS; principal; 2018-07-06)
PROC: 3E03329 Introduction of Other Anti-infective into Peripheral Vein, Percutaneous Approach (ICD-10-PCS; 2018-07-06)
PROC: 3E033GC Introduction of Other Therapeutic Substance into Peripheral Vein, Percutaneous Approach (ICD-10-PCS; 2018-07-06)
DX: N12 Tubulo-interstitial nephritis, not specified as acute or chronic (principal)
CPT/HCPCS: 36415; 76705-TC; 76775-TC; 80053; 81003; 81015; 83690; 84703; 85025; 87086; 87186; 99282-25; J7030

== ENCOUNTER 2018-10-09 19:33 | Emergency (ER) | payer SELFPAY ==
[2018-10-09 19:36] VITALS: BP 100/75; PULSE 97; TEMP 98.2; BMI 18.4
[2018-10-09] MEDS ORDERED: ACETAMINOPHEN 325 MG TABLET (FP) PO ONE (20:29)
--- NOTE | 2018-10-09 20:34 | PDOC ---
Attending Attestation - HPI HPI: 10/09/18 21:34 Patient is a 23 year old female with history of fibromyalgia and asthma who presents to the ED with complaints of lower abdominal cramping, back pain and a late menstrual period for 18 days. Patient reports taking a test 2 days ago which was negative. She denies any nausea, vomiting, diarrhea. Denies any urinary complaints. Denies fevers or chills. LMP was August 24. [employer]: Dr. Mackenzie ([facility]) - Physicial Exam PE: 10/09/18 21:34 GENERAL: Awake, alert, and fully oriented, in no acute distress LUNGS: Breath sounds equal, clear to auscultation bilaterally HEART: Regular rate and rhythm, normal S1 and S2, no murmurs, rubs or gallops ABDOMEN: Soft, nontender, normoactive bowel sounds. EXTREMITIES: Normal range of motion, no edema. NEUROLOGICAL: Cranial nerves II through XII grossly intact. Normal speech, normal gait SKIN: Warm, Dry, normal turgor, no rashes or lesions noted. - Medical Decision Making 10/09/18 21:35 Documentation prepared by Rubi Nina, acting as medical technologist prn for Nanci Harrington MD. <Rubi Nina - Last Filed: 10/09/18 21:34> - Resident Resident Name: Storm Babb - ED Attending Attestation I have performed the following: I have examined & evaluated the patient, The case was reviewed & discussed with the resident, I agree w/resident's findings & plan, Exceptions are as noted - Medical Decision Making Pt concerned about (despite negative test) due to missed period 10/09/18 22:04 Laboratory Tests 10/09/18 10/09/18 10/09/18 20:55 20:55 21:00 WBC 7.0 Hgb 14.8 Hct 43.0 Plt Count 368 Beta HCG, Quant < 1.0 Urine Blood Negative Urine Nitrite Negative Ur Leukocyte Esterase Negative Given lower abdominal pain and back cramping, pt sent to US U/S - endometrial fluid, no sonographic evidence of torsion Will plan to discharge to home clinical impression: irregular menses, initial presentation <Nanci Harrington - Last Filed: 10/13/18 08:31>
[2018-10-09] MEDS ORDERED: ACETAMINOPHEN 325 MG TABLET (FP) ONE (20:43)
[2018-10-09 21:06] LABS: HEMOGLOBIN 14.8 GM/dL (10.7-15.3); MCH 28.2 pg (25.7-33.7); RBC 5.25 M/mm3 (3.60-5.2)
[2018-10-09 21:07] LABS: BASO % 0.9 % (0-2.0); EOS % 4.7 % (0-4.5); LYMPH % 46.3 % (8-40); MCHC 34.4 g/dl (32.0-36.0); MEAN PLT VOLUME 9.2 fl (7.5-11.1); MONO % 7.9 % (3.8-10.2); NEUT % 40.2 % (42.8-82.8); PLATELET COUNT 368 K/MM3 (134-434); RDW 13.8 % (11.6-15.6)
--- NOTE | 2018-10-09 21:09 | PDOC ---
History of Present Illness - General Chief Complaint: Pain Stated Complaint: BACK PAIN/CRAMPING Time Seen by Provider: 10/09/18 20:15 History Source: Patient Exam Limitations: No Limitations - History of Present Illness Initial Comments: 10/09/18 21:10 Patient is a 23F with history of asthma and fibromyalgia here today complaining of abdominal pain radiating to her back that started yesterday. Patient states that she is concerned because she is 18 days late for her period. LMP 7 weeks ago. A home test was negative. Patient denies fevers, chills, endorses some weakness that passes. Denies dysuria, vaginal pain, vaginal discharge. Denies chest pain, shortness of breath. Pain is located suprapubically radiating to her lower back. Past History - Past Medical History Allergies/Adverse Reactions: Allergies Allergy/AdvReac Type Severity Reaction Status Date / Time raspberry Allergy Verified 10/09/18 19:36 Home Medications: Ambulatory Orders NK [No Known Home Medication] 10/09/18 Asthma: Yes COPD: No - Immunization History Immunization Up to Date: Yes - Suicide/Smoking/Psychosocial Hx Smoking History: Never smoked Have you smoked in the past 12 months: No Number of Cigarettes Smoked Daily: 0 Hx Alcohol Use: No Drug/Substance Use Hx: No Substance Use Type: None Review of Systems - Review of Systems Comments:: 10/09/18 21:14 GENERAL/CONSTITUTIONAL: No fever or chills. No weakness. HEAD, EYES, EARS, NOSE AND THROAT: No change in vision. No sore throat. CARDIOVASCULAR: No chest pain or shortness of breath RESPIRATORY: No cough, wheezing, or hemoptysis. GASTROINTESTINAL: No nausea, vomiting, diarrhea or constipation. GENITOURINARY: No dysuria, frequency, or change in urination. MUSCULOSKELETAL: No joint or muscle swelling or pain. No neck or back pain. SKIN: No rash NEUROLOGIC: No headache, vertigo, loss of consciousness, or change in strength/ sensation. ENDOCRINE: No increased thirst. No abnormal weight change HEMATOLOGIC/LYMPHATIC: No anemia, easy bleeding, or history of blood clots. ALLERGIC/IMMUNOLOGIC: No hives or skin allergy. *Physical Exam - Vital Signs Last Vital Signs Temp Pulse Resp BP Pulse Ox 98.2 F 97 H 18 100/75 99 10/09/18 19:34 10/09/18 19:34 10/09/18 19:34 10/09/18 19:34 10/09/18 19:34 - Physical Exam Comments: 10/09/18 21:14 GENERAL: Awake, alert, and fully oriented, in no acute distress HEAD: No signs of trauma, normocephalic, atraumatic EYES: PERRLA, EOMI, sclera anicteric, conjunctiva clear ENT: Auricles normal inspection, hearing grossly normal, nares patent, oropharynx clear without exudates. Moist mucosa NECK: Normal ROM, supple, no lymphadenopathy, JVD, or masses LUNGS: No distress, speaks full sentences, clear to auscultation bilaterally HEART: Regular rate and rhythm, normal S1 and S2, no murmurs, rubs or gallops, peripheral pulses normal and equal bilaterally. ABDOMEN: Soft, nontender, normoactive bowel sounds. No guarding, no rebound. No masses EXTREMITIES: Normal inspection, Normal range of motion, no edema. No clubbing or cyanosis. NEUROLOGICAL: Cranial nerves II through XII grossly intact. Normal speech, normal gait, no focal sensorimotor deficits SKIN: Warm, Dry, normal turgor, no rashes or lesions noted. Moderate Sedation - Procedure Monitoring Vital Signs: Procedure Monitoring Vital Signs Temperature 98.2 F 10/09/18 19:34 Pulse Rate 97 H 10/09/18 19:34 Respiratory Rate 18 10/09/18 19:34 Blood Pressure 100/75 10/09/18 19:34 O2 Sat by Pulse Oximetry (%) 99 10/09/18 19:34 ED Treatment Course - LABORATORY CBC & Chemistry Diagram: 10/09/18 20:55 10/09/18 20:55 - RADIOLOGY Radiology Studies Ordered: Category Date Time Status TRANSVAGINAL US PREG [US] Stat Ultrasound 10/09/18 20:32 Ordered Medical Decision Making - Medical Decision Making 10/09/18 21:15 Patient is 23F with history of asthma and fibromyalgia here today with late menstrual period and lower abdominal pain radiating to back. No vaginal or pelvic pain, no discharge. Will evaluate with abdominal labs, tvus, beta hcg quant. 10/09/18 23:14 CBC, CMP normal. UA normal. Bhcg negative. TVUS shows good flow to ovaries, no abnormalities. Will dc home with pcp follow up. *DC/Admit/Observation/Transfer Diagnosis at time of Disposition: Abdominal pain - Discharge Dispostion Disposition: HOME Condition at time of disposition: Good Decision to Admit order: No - Referrals - Patient Instructions Printed Discharge Instructions: DI for Abdominal Pain-Adult Additional Instructions: Please follow up with your primary care doctor this week. Please return if you have any new, worsening or concerning symptoms, especially increasing pain, fever, and vomiting. - Post Discharge Activity Forms/Work/School Notes: Back to Work
[2018-10-09 21:15] LABS: URINE APPEARANCE CLOUDY; URINE BILIRUBIN NEGATIVE (<2.0 mg/dL); URINE COLOR YELLOW; URINE GLUCOSE (UA) NEGATIVE (NEGATIVE); URINE KETONE NEGATIVE (NEGATIVE); URINE LEUK ESTERASE NEGATIVE (NEGATIVE); URINE NITRITE NEGATIVE (NEGATIVE); URINE PROTEIN NEGATIVE (NEGATIVE); URINE UROBILINOGEN NEGATIVE mg/dL (0.2-1.0)
[2018-10-09 21:32] LABS: ALBUMIN 3.9 g/dl (3.4-5.0); ALK PHOS 98 U/L (45-117); ANION GAP 7 MMOL/L (8-16); BILIRUBIN,TOTAL 0.2 mg/dL (0.2-1); BLOOD UREA NITROGEN 18 mg/dL (7-18); CALCIUM 9.5 mg/dL (8.5-10.1); CHLORIDE 106 mmol/L (98-107); CO2 26 mmol/L (21-32); CREATININE 0.7 mg/dL (0.55-1.3); GLUCOSE,RANDOM 89 mg/dL (74-106); LIPASE 222 U/L (73-393); POTASSIUM 3.8 mmol/L (3.5-5.1); SGOT/AST 44 U/L (15-37); SGPT/ALT 60 U/L (13-61); SODIUM 139 mmol/L (136-145); TOT PROT 7.3 g/dl (6.4-8.2)
== END 2018-10-09 23:42 | disposition home or self-care (01) ==
LOC: SUPCPDRO 19:33 → JER 19:33
DX: R10.84 Generalized abdominal pain (principal); M79.7 Fibromyalgia; J45.909 Unspecified asthma, uncomplicated
CPT/HCPCS: 36415; 76817-TC; 80053; 81003; 83690; 84702; 85025; 87086; 99282-25

== ENCOUNTER 2019-02-01 09:13 | Emergency (ER) | payer OTHER ==
[2019-02-01 09:34] VITALS: BMI 18.4
--- NOTE | 2019-02-01 10:06 | PDOC ---
History of Present Illness - General Chief Complaint: Chest Pain Stated Complaint: LF SIDE CHEST PAIN Time Seen by Provider: 02/01/19 09:52 History Source: Patient - History of Present Illness Presenting Symptoms: Chest Pain Past History - Past Medical History Allergies/Adverse Reactions: Allergies Allergy/AdvReac Type Severity Reaction Status Date / Time brittonerry Allergy Verified 02/01/19 09:28 Home Medications: Ambulatory Orders NK [No Known Home Medication] 10/09/18 Asthma: Yes COPD: No - Immunization History Immunization Up to Date: Yes - Suicide/Smoking/Psychosocial Hx Smoking History: Never smoked Have you smoked in the past 12 months: No Number of Cigarettes Smoked Daily: 0 Hx Alcohol Use: No Drug/Substance Use Hx: No Substance Use Type: None Review of Systems - Review of Systems Constitutional: No: Chills, Fever Respiratory: No: Cough, Shortness of Breath Cardiac (ROS): Yes: Chest Pain. No: Lightheadedness, Palpitations, Syncope *Physical Exam - Vital Signs Last Vital Signs Temp Pulse Resp BP Pulse Ox 97.9 F 89 18 110/74 10 L 02/01/19 09:30 02/01/19 09:30 02/01/19 09:30 02/01/19 09:30 02/01/19 09:30 - Physical Exam General Appearance: Yes: Appropriately Dressed. No: Apparent Distress HEENT: positive: Normal Voice Neck: positive: Supple Respiratory/Chest: positive: Lungs Clear, Normal Breath Sounds. negative: Respiratory Distress Cardiovascular: positive: Regular Rate, S1, S2 Extremity: negative: Tender, Swelling Integumentary: positive: Dry, Warm Neurologic: positive: Fully Oriented, Alert, Normal Mood/Affect ED Treatment Course - ADDITIONAL ORDERS Additional order review: Laboratory Results 02/01/19 10:31 Urine HCG, Qual Negative - RADIOLOGY Radiology Studies Ordered: Category Date Time Status CHEST PA & LAT [RAD] Stat Radiology 02/01/19 10:06 Ordered Medical Decision Making - Medical Decision Making 02/01/19 10:05 23 yo F, no sig hx, here w/ substernal chest pain x > 1 week, sharp, constant x few days, worse w/ stretching per pt. Pain now radiating to L arm . No SOB, diaphoresis, palpitations, n/v. No illicit drug shirin. No sig fmhx. No recent URI. No obvious RF for DVT/PE. No trauma See exam CP No RF for ACS, PERCs out, possible MSK given reproducibility, no recent URI Well remi and stable w/ clear chest/lungs -ekg -cxr -dose of tylenol here -anticipate discharge 02/01/19 11:52 EKG and CXR negative. Pt stable for discharge to take tylenol prn and to f/u with PMD as needed 02/01/19 12:04 *DC/Admit/Observation/Transfer Diagnosis at time of Disposition: Chest pain Qualifiers: Chest pain type: unspecified Qualified Code(s): R07.9 - Chest pain, unspecified - Discharge Dispostion Disposition: HOME Condition at time of disposition: Good - Referrals Referrals: Batsheva Eaton [Primary Care Provider] - - Patient Instructions Additional Instructions: The cause of your chest pain is unclear at this time as your EKG and CXR were normal Take tyenol as needed Please follow up with your PMD if pain persists - Post Discharge Activity Forms/Work/School Notes: Back to Work
[2019-02-01] MEDS ORDERED: ACETAMINOPHEN 325 MG TABLET (FP) PO ONE (10:57)
[2019-02-01] MEDS ORDERED: ACETAMINOPHEN 325 MG TABLET (FP) ONE (11:51)
[2019-02-01 12:11] VITALS: BP 104/76; PULSE 85; TEMP 98.5
--- NOTE | 2019-02-01 13:46 | EKG ---
Test Reason : Blood Pressure : / mmHG Vent. Rate : 089 BPM Atrial Rate : 089 BPM P-R Int : 136 ms QRS Dur : 072 ms QT Int : 380 ms P-R-T Axes : 067 067 035 degrees QTc Int : 462 ms POOR DATA QUALITY, INTERPRETATION MAY BE ADVERSELY AFFECTED NORMAL SINUS RHYTHM NORMAL ECG NO PREVIOUS ECGS AVAILABLE Confirmed by Esteban Velazquez MD ([id number]) on 02/01/2019 1:46:32 PM Referred By: Confirmed By:Esteban Velazquez MD
== END 2019-02-01 12:05 | disposition home or self-care (01) ==
LOC: JER 09:13
DX: R07.9 Chest pain, unspecified (principal)
CPT/HCPCS: 71046-TC-FY; 84703; 93005; 93010; 99284-25

== ENCOUNTER 2020-06-11 17:59 | Emergency (ER) | payer OTHER ==
[2020-06-11] MEDS ORDERED: ACETAMINOPHEN 500 MG TABLET (FP) PO ONE (18:30)
--- NOTE | 2020-06-11 18:30 | PDOC ---
Rapid Medical Evaluation Time Seen by Provider: 06/11/20 18:27 Medical Evaluation: Allergies Allergy/AdvReac Type Severity Reaction Status Date / Time brittonerry Allergy Verified 02/01/19 09:28 06/11/20 18:28 I performed a brief in-person evaluation of this patient. Pt is a 24 y/o female who presents to the ED with complaint of left sided back pain that feels similar to a previous kidney infection. The patient is 27 weeks gestation. No dysuria, hematuria, fevers. Pertinent physical exam findings: No CVA tenderness. Tender over the L SI joint. I have ordered the following: UA, urine culture, Tylenol Patient to proceed to ED for further evaluation. Discharge Disposition - Diagnosis Left low back pain - Referrals - Patient Instructions - Post Discharge Activity
[2020-06-11 18:37] VITALS: BP 104/67; PULSE 104; TEMP 98.3; BMI 21.9
--- OUTSIDE RECORDS SUMMARY | 2020-06-11 18:43 | XMS ---
:[address] [facility] Support Name Relationship Address Phone ROMINA SALEEM Unavailable [id number] [place] [address] MARTIN MORA [address] [place] [address] Re-disclosure Warning The records that you are about to access may contain information from federally- assisted alcohol or drug abuse programs. If such information is present, then the following federally mandated warning applies: This information has been disclosed to you from records protected by federal confidentiality rules (42 CFR part 2). The federal rules prohibit you from making any further disclosure of this information unless further disclosure is expressly permitted by the written consent of the person to whom it pertains or as otherwise permitted by 42 CFR part 2. A general authorization for the release of medical or other information is NOT sufficient for this purpose. The Federal rules restrict any use of the information to criminally investigate or prosecute any alcohol or drug abuse patient.The records that you are about to access may contain highly sensitive health information, the redisclosure of which is protected by Article 27-F of the [facility] Public Health law. If you continue you may haveaccess to information: Regarding HIV / AIDS; Provided by facilities licensed or operated by the [facility] Office of Mental Health; or Provided by the [facility] Office for People With Developmental Disabilities. If such information is present, then the following [facility] mandated warning applies: This information has been disclosed to you from confidential records which are protected by state law. State law prohibits you from making any further disclosure of this information without the specific written consent of the person to whom it pertains, or as otherwise permitted by law. Any unauthorized further disclosure in violation of state law may result in a fine or custodial sentence or both. A general authorization for the release of medical or other information is NOT sufficient authorization for further disclosure. Insurance Providers Payer name Policy type Policy ID Covered Covered constitution party's Policy P sourav / Coverage constitution party ID relationship to [employer] Inf ormation type diaz [employer] [id number] SP [id number] [employer] [facility]. SELF PAY SP INSURANCE Results ID Date Data Source [id number] 04/17/2020 11:34:00 AM EDT [facility] Name Value Range Interpretation Code Description Data Sarah rce(s) Supporting Document(s ) COV2 [facility] This lab was ordered by LIT[facility] reported by [facility] [place]. Procedure
[2020-06-11] MEDS ORDERED: ACETAMINOPHEN 500 MG TABLET (FP) ONE (20:01)
[2020-06-11 20:37] LABS: URINE APPEARANCE CLEAR; URINE BILIRUBIN NEGATIVE (NEGATIVE); URINE COLOR YELLOW; URINE GLUCOSE (UA) NEGATIVE (NEGATIVE); URINE KETONE NEGATIVE (NEGATIVE); URINE LEUK ESTERASE NEGATIVE (NEGATIVE); URINE NITRITE NEGATIVE (NEGATIVE); URINE PROTEIN NEGATIVE (NEGATIVE); URINE UROBILINOGEN 0.2 mg/dL (0.2-1.0)
--- NOTE | 2020-06-11 20:38 | PDOC ---
Documentation entered by Masrha Harris SCRIBE, acting as scribe for Sheila Inman MD. Sheila Inman MD: This documentation has been prepared by the Kimberly azul Brenda, SCRIBE, under my direction and personally reviewed by me in its entirety. I confirm that the documentation accurately reflects all work, treatment, procedures, and medical decision making performed by me. Attending Attestation - Resident Resident Name: Guillermo Velasquez - ED Attending Attestation I have performed the following: I have examined & evaluated the patient, The case was reviewed & discussed with the resident, I agree w/resident's findings & plan, Exceptions are as noted - HPI HPI: 06/11/20 20:37 This 24 yo female is 27 weeks and has had left sided back pain since last night, She denies any recent trauma, No fever ,no vomiting, no pelvic cramping - Physicial Exam PE: 06/11/20 20:52 wnwd 24 yo female presents with some very focal left lower back pain, no vaginal bleeding , no pelvic cramping head ncat abdomen protuberant, nontender skin warm and dry extremities on edema, no erythema neuro axox3,ambulatory, no deficits - Medical Decision Making 06/11/20 20:40 this 24 yo female has lower back pain and reports being 27 weeks 06/11/20 20:42 PMH UA is negative, normal VS, no protein in urine, 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 In the ED you were evaluated with urine testing Your results were negative There does not appear to be an acute need for immediate hospitalization. You are advised to follow up with your Early Childhood Associate Teacher within 1 week. Return to the ED immediately if you experience worsening back pain, and abdominal pain, or vaginal bleeding. Continue to follow with your Obstetric aged or disabled care worker. Please take Tylenol as needed for the pain. - Post Discharge Activity
--- NOTE | 2020-06-11 20:56 | PDOC ---
History of Present Illness - General Chief Complaint: Back Pain Stated Complaint: 27 WEEK PREG, PAIN Time Seen by Provider: 06/11/20 18:27 - History of Present Illness Initial Comments: 06/11/20 20:50 24 F 26weeks presented to the ED with cc of left lumbar pain. Pain started out yesterday night when patient was reclining down. She woke up , and pain and numbness appeared. Patient denies chest pain, abdominal pain/cramp, fever, chill, nausea, vomiting, and saddle paresthesis, vaginal bleeding. Patient has regular follow up with detasseler TAX ASSESSOR [facility]. PMH: asthma Allergy : raspberry Med: med SS: denies Smoke, drug, alcohol. detasseler: leena Armenta. TAX ASSESSOR ROS GENERAL/CONSTITUTIONAL: No fever or chills. No weakness. HEAD, EYES, EARS, NOSE AND THROAT: No change in vision. No ear pain or discharge. No sore throat. CARDIOVASCULAR: No chest pain or shortness of breath RESPIRATORY: No cough, wheezing, or hemoptysis. GASTROINTESTINAL: No nausea, vomiting, diarrhea or constipation. GENITOURINARY: No dysuria, frequency, or change in urination. MUSCULOSKELETAL: No neck ,+ back pain. SKIN: No rash NEUROLOGIC: No headache, vertigo, loss of consciousness, or change in strength/sensation. ENDOCRINE: No increased thirst. No abnormal weight change HEMATOLOGIC/LYMPHATIC: No anemia, easy bleeding, or history of blood clots. ALLERGIC/IMMUNOLOGIC: No hives or skin allergy. PE GENERAL: Awake, alert, and fully oriented, in no acute distress HEAD: No signs of trauma, normocephalic, atraumatic EYES: PERRLA, EOMI, sclera anicteric, conjunctiva clear ENT: Auricles normal inspection, hearing grossly normal, nares patent, oropharynx clear without exudates. Moist mucosa NECK: Normal ROM, supple, no lymphadenopathy, JVD, or masses LUNGS: No distress, speaks full sentences, clear to auscultation bilaterally HEART: Regular rate and rhythm, normal S1 and S2, no murmurs, rubs or gallops, peripheral pulses normal and equal bilaterally. ABDOMEN: Soft, nontender, normoactive bowel sounds. No guarding, no rebound. No masses, no CVA tenderness Bilat. gravid abdomen. EXTREMITIES : Normal inspection, Normal range of motion, no edema. No clubbing or cyanosis. Negative straight leg raise bilaterally. Back: no midline tenderness throughout. NEUROLOGICAL: Cranial nerves II through XII grossly intact. Normal speech, normal gait, no focal sensorimotor deficits SKIN: Warm, Dry, normal turgor, no rashes or lesions noted Past History - Medical History Allergies/Adverse Reactions: Allergies Allergy/AdvReac Type Severity Reaction Status Date / Time jessica Allergy Verified 06/11/20 18:28 Home Medications: Ambulatory Orders NK [No Known Home Medication] 10/09/18 Asthma: Yes COPD: No - Reproductive History Is Patient Now?: No - Immunization History Immunization Up to Date: Yes - Psycho-Social/Smoking History Smoking History: Never smoked Have you smoked in the past 12 months: No Number of Cigarettes Smoked Daily: 0 - Substance Abuse Hx (Audit-C & DAST Scrn) How often the patient has a drink containing alcohol: Never Score: In Men: 4 or > Positive; In Women: 3 or > Positive: 0 Screen Result (Pos requires Nsg. Audit-10AR): Negative In the last yr the pt used illegal drug/Rx for NonMed reason: No Score: Yes response is considered Positive: 0 Screen Result (Positive result requires Nsg. DAST-10): Negative *Physical Exam - Vital Signs Last Vital Signs Temp Pulse Resp BP Pulse Ox 98.3 F 104 H 18 104/67 100 06/11/20 18:28 06/11/20 18:28 06/11/20 18:28 06/11/20 18:28 06/11/20 18:28 ED Treatment Course - ADDITIONAL ORDERS Additional order review: Laboratory Results 06/11/20 20:05 Urine Color Yellow Urine Appearance Clear Urine pH 7.0 Ur Specific [place] 1.007 L Urine Protein Negative Urine Glucose (UA) Negative Urine Ketones Negative Urine Blood Negative Urine Nitrite Negative Urine Bilirubin Negative Urine Urobilinogen 0.2 Ur Leukocyte Esterase Negative - Medications Given in the ED: ED Medications Discontinued Medications Generic Name Dose Route Start Last Admin Trade Name Freq PRN Reason Stop Dose Admin Acetaminophen 1,000 mg 06/11/20 18:30 06/11/20 20:08 Tylenol - PO 06/11/20 18:31 1,000 mg ONCE ONE Administration Medical Decision Making - Medical Decision Making 06/11/20 20:54 Look for UTI, kidney stones. Plan to do Urine analysis Urine analysis is normal. Patient experienced this pain due to weight gain and physiological respond to the body. stable to d/c Discharge - Discharge Information Problems reviewed: Yes Clinical Impression/Diagnosis: Left low back pain Condition: Good Disposition: HOME - Follow up/Referral - Patient Discharge Instructions Additional Instructions: You were seen in the ED for complaints of low back pain. In the ED you were evaluated with urine testing Your results were negative There does not appear to be an acute need for immediate hospitalization. You are advised to follow up with your Instrumentation And Controls Designer within 1 week. Return to the ED immediately if you experience worsening back pain, and abdominal pain, or vaginal bleeding. Continue to follow with your Obstetric customer care associate. Please take Tylenol as needed for the pain. - Post Discharge Activity
[2020-06-12] MEDS ORDERED: EPHEDRINE SULFATE/0.9% NACL/PF 50 MG/10 ML SYRINGE NR ONE (11:45)
[2020-06-12] MEDS ORDERED: PROPOFOL 20 ML ONE ×3 (11:45→13:26)
== END 2020-06-11 21:00 | disposition home or self-care (01) ==
LOC: JER 17:59
DX: M54.5 Low back pain (principal); Z3A.27 27 weeks gestation of pregnancy
CPT/HCPCS: 81003; 87086; 99283-25

== ENCOUNTER 2020-09-10 07:05 | Inpatient (IN) | payer OTHER ==
[2020-09-10] MEDS ORDERED: PROMETHAZINE HCL 25 MG/1 ML VIAL IVPB ONE (07:52)
[2020-09-10] MEDS ORDERED: CITRIC ACID/SODIUM CITRATE 30 ML UNIT-DOSE CUP PO ONE (07:52)
[2020-09-10] MEDS ORDERED: BUTORPHANOL TARTRATE 1 MG/ML VIAL IVPB PRN (07:52)
[2020-09-10] MEDS ORDERED: DINOPROSTONE 10 MG VAGINAL SUPPOSITORY VG ONE (07:54)
[2020-09-10] MEDS: ELECTROLYTE-148 SOLN 1,000 ML IV SCH ×2 (08:30→15:09)
[2020-09-10 08:36] VITALS: BMI 22.8
[2020-09-10 10:21] LABS: BASO % 0.4 % (0-2.0); HEMOGLOBIN 13.3 GM/dL (10.7-15.3); LYMPH % 30.1 % (8-40); MCH 28.9 pg (25.7-33.7); MCHC 33.3 g/dl (32.0-36.0); MEAN CELL VOLUME 86.7 fl (80-96); MEAN PLT VOLUME 9.3 fl (7.5-11.1); MONO % 9.8 % (3.8-10.2); NEUT % 58.7 % (42.8-82.8); PLATELET COUNT 212 K/MM3 (134-434); RBC 4.61 M/mm3 (3.60-5.2); RDW 13.6 % (11.6-15.6); WHITE BLOOD COUNT 6.8 K/mm3 (4.0-10.0)
[2020-09-10 10:29] LABS: INR 1.03 (0.83-1.09); PROTHROMBIN TIME (PATIENT) 12.4 SEC (9.7-13.0)
[2020-09-10 10:31] LABS: ACTIVATED PTT 30.9 SECONDS (25.2-36.5)
[2020-09-10 10:46] LABS: BLOOD UREA NITROGEN 13.5 mg/dL (7-18); CALCIUM 8.9 mg/dL (8.5-10.1)
[2020-09-10 10:50] LABS: CREATININE 0.8 mg/dL (0.55-1.3)
[2020-09-10 11:42] LABS: HIV INTERPRETATION NEGATIVE (NEGATIVE)
[2020-09-10] MEDS ORDERED: BUTORPHANOL TARTRATE 2 MG/ML VIAL ONE (12:23)
[2020-09-10] MEDS ORDERED: PROMETHAZINE HCL 25 MG/1 ML VIAL ONE (12:23)
[2020-09-10] MEDS ORDERED: WITCH HAZEL 50% (TUCKS) 40 PAD/JAR PAD TP PRN (17:24)
[2020-09-10] MEDS ORDERED: METHYLERGONOVINE MALEATE 0.2 MG/1 ML AMP IM PRN (17:24)
[2020-09-10] MEDS ORDERED: BENZOCAINE 28 GM HEMORRHOIDAL OINTMENT PR PRN (17:24)
[2020-09-10] MEDS ORDERED: diphenhydrAMINE HCL 25 MG CAPSULE (FP) PO PRN (17:24)
[2020-09-10] MEDS ORDERED: BENZOCAINE 20% 57 GM BOTTLE TP PRN (17:24)
[2020-09-10] MEDS ORDERED: OXYTOCIN 30 UNITS in 0.9% NS 30 UNIT/500 ML INFUS.BAG IVPB ONE (18:08)
[2020-09-10] MEDS ORDERED: OXYTOCIN 20 UNITS in 0.9% NS 20 UNIT/1,000 ML INFUS.BAG IV ONE (21:16)
[2020-09-10] MEDS ORDERED: ePHEDrine SULFATE 50 MG/1 ML AMPULE ONE (21:20)
[2020-09-10] MEDS ORDERED: morphine SULFATE/PF 1 MG/2 ML (2cc Syringe - QUVA) ONE (21:20)
[2020-09-10] MEDS ORDERED: OXYTOCIN 10 UNITS/ML VIAL ONE (21:36)
[2020-09-10] MEDS ORDERED: ceFAZolin SODIUM 1 GM VIAL ONE (21:36)
[2020-09-10] MEDS ORDERED: ONDANSETRON 4 MG/2 ML VIAL ONE (22:03)
[2020-09-10] MEDS ORDERED: ONDANSETRON 4 MG/2 ML VIAL IVPUSH PRN (22:35)
[2020-09-11 00:01] LABS: CORD BASE EXCESS -7.7 mmol/L (0-2); CORD HCO3 21.4 mmHg (20-29); CORD PCO2 47.9 mmHg (30-78); CORD PCO2 56.2 mmHg (30-78); CORD pH 7.199 (7.14-7.44); CORD pH 7.238 (7.14-7.44)
[2020-09-11] MEDS: IBUPROFEN 800 MG/8 ML IJ IVPB PRN ×2 (02:15→13:02)
[2020-09-11 06:14] LABS: HEMOGLOBIN 10.9 GM/dL (10.7-15.3); MCH 28.8 pg (25.7-33.7); MCHC 32.9 g/dl (32.0-36.0); MEAN CELL VOLUME 87.5 fl (80-96); MEAN PLT VOLUME 9.3 fl (7.5-11.1); PLATELET COUNT 171 K/MM3 (134-434); RBC 3.78 M/mm3 (3.60-5.2); RDW 13.7 % (11.6-15.6); WHITE BLOOD COUNT 7.7 K/mm3 (4.0-10.0)
[2020-09-11] MEDS ORDERED: oxyCODONE HCL 5 MG TABLET PO PRN (10:00)
[2020-09-11] MEDS ORDERED: BISACODYL 10 MG SUPP.RECT PR PRN (17:24)
[2020-09-11] MEDS ORDERED: HYDROmorphone HCL 2 MG TABLET PO PRN (17:24)
[2020-09-11] MEDS: ELECTROLYTE-148 SOLN 1,000 ML IV SCH (19:41)
[2020-09-11] MEDS: oxyCODONE HCL 5 MG TABLET PO PRN (19:50)
[2020-09-11] MEDS: ACETAMINOPHEN 325 MG TABLET (FP) PO PRN (19:50)
[2020-09-12] MEDS: oxyCODONE HCL 5 MG TABLET PO PRN ×2 (00:51→05:28)
[2020-09-12] MEDS: SIMETHICONE 80 MG TAB.CHEW (FP) PO PRN ×4 (00:51→22:51)
[2020-09-12] MEDS: ACETAMINOPHEN 325 MG TABLET (FP) PO PRN ×5 (00:52→22:50)
[2020-09-12] MEDS: IBUPROFEN 600 MG TABLET (FP) PO PRN ×4 (09:42→22:50)
[2020-09-12] MEDS ORDERED: SENNOSIDES/DOCUSATE COMBO (SENNA PLUS) TABLET (UD) PO PRN (22:00)
[2020-09-13] MEDS: ACETAMINOPHEN 325 MG TABLET (FP) PO PRN ×5 (04:54→23:26)
[2020-09-13] MEDS: SIMETHICONE 80 MG TAB.CHEW (FP) PO PRN ×3 (04:54→14:19)
[2020-09-13] MEDS: oxyCODONE HCL 5 MG TABLET PO PRN (04:58)
[2020-09-13 09:12] LABS: HEMATOCRIT 29.4 % (32.4-45.2); HEMOGLOBIN 9.7 GM/dL (10.7-15.3); MCHC 33.1 g/dl (32.0-36.0); MEAN CELL VOLUME 87.6 fl (80-96); MEAN PLT VOLUME 8.9 fl (7.5-11.1); PLATELET COUNT 194 K/MM3 (134-434); RBC 3.35 M/mm3 (3.60-5.2); RDW 13.7 % (11.6-15.6); WHITE BLOOD COUNT 9.6 K/mm3 (4.0-10.0)
[2020-09-13] MEDS: IBUPROFEN 600 MG TABLET (FP) PO PRN ×4 (09:17→23:30)
[2020-09-13 23:48] VITALS: TEMP 97.1
[2020-09-14] MEDS: IBUPROFEN 600 MG TABLET (FP) PO PRN (03:34)
[2020-09-14] MEDS: ACETAMINOPHEN 325 MG TABLET (FP) PO PRN (03:37)
[2020-09-14 09:25] VITALS: BP 120/80; PULSE 68
== END 2020-09-14 13:40 | disposition home or self-care (01) | DRG 540 ==
LOC: JLDR 07:05 → J3W 09-11 00:15
PROVIDERS: ADMIT Obstetrics & Gynecology; ATTEND Obstetrics & Gynecology
PROC: 10D00Z1 Extraction of Products of Conception, Low, Open Approach (ICD-10-PCS; principal; 2020-09-10)
DX: O76 Abnormality in fetal heart rate and rhythm complicating labor and delivery (principal); O48.0 Post-term pregnancy; Z3A.40 40 weeks gestation of pregnancy; Z37.0 Single live birth
CPT/HCPCS: 36415; 36600; 80048; 82803; 85025; 85027; 85610; 85730; 86780; 86850; 86900; 86901; 87389; 88307-TC